=== PATIENT | female | born 1940 | race Caucasian/White ===

== ENCOUNTER 2018-09-21 08:57 | Emergency (ER) | payer MEDICARE, BC ==
[~2018-09-21] VITALS: Ht 154.9 cm; Wt 89.4 kg
[~2018-09-21 08:57] MED LIST: AMLODIPINE BESY10 MG PO; BENAZEPRIL HCL10 MG PO; CALCIUM500 MG PO; CENTRUM SILVER1 EAC3 PO; CLORAZEPATE D3.75 MG PO; LASIX40 MG PO; MACROBID 100 M100 MG PO; MONTELUKAST SOD10 MG PO; PANTOPRAZOLE SO40 MG PO; PLAVIX75 MG PO; PRAVASTATIN SOD10 MG PEG; PREDNISONE10 MG PO; SYMBICORT 16010.2 GM; SYMBICORT 16010.2 GM INH; VITAMIN D31000 UNIT PO
--- OUTSIDE RECORDS SUMMARY | 2018-09-21 09:01 | XMS REPORT | Clinical Summary ---
Author Author [facility] Address Unknown Phone Unavailable Care Team Providers Care Telephone Operator Receptionist Name Role Phone Unknownmeds, Provider PCP Unavailable Allergies Comments Active Allergy Reactions Severity Noted Date Glucosamine 10/15/2015 Iodine Nausea Only 10/15/2015 Iodine And Iodide 10/11/2015 Containing Products Shellfish Containing Diarrhea 10/11/2015 Products Tongue swells Sulfa (Sulfonamide Swelling 10/11/2015 Antibiotics) Tongue swelling, able to take hctz without difficulty Sulfamethoxazole-Trimetho Swelling 10/15/2015 prim Medications End Date Status Medication Sig Dispensed Refills Start Date Active amLODIPine (NORVASC) 10 Take 10 mg by 0 MG tablet mouth daily. Active aspirin 81 MG EC tablet Take 81 mg by 0 mouth daily. Active benazepril (LOTENSIN) 40 Take 40 mg by 0 MG tablet mouth daily. Active BUDESONIDE/FORMOTEROL Inhale by 0 FUMARATE (SYMBICORT INHL) mouth via inhaler 2 (two) times daily. Active fluticasone (FLONASE) 50 1 spray by 0 mcg/actuation nasal spray Nasal route as needed for Rhinitis. Active furosemide (LASIX) 40 MG Take 40 mg by 0 tablet mouth 3 (three) times a week. Active montelukast (SINGULAIR) Take 10 mg by 0 10 mg tablet mouth nightly. Active clopidogrel (PLAVIX) 75 Take 75 mg by 0 mg tablet mouth daily. Active zolpidem (AMBIEN) 5 MG Take 5 mg by 0 tablet mouth every night as needed for Insomnia. Active ranitidine (ZANTAC) 150 Take 150 mg 0 MG capsule by mouth daily. Active ibuprofen (ADVIL,MOTRIN) Take 200 mg 0 100 mg/5 mL suspension by mouth every 4 (four) hours as needed for Fever. Active clorazepate (TRANXENE) Take 3.75 mg 0 3.75 MG tablet by mouth 2 (two) times daily. Active pravastatin (PRAVACHOL) Take 10 mg by 0 10 MG tablet mouth daily. Active valACYclovir (VALTREX) Take 1,000 mg 0 1000 MG tablet by mouth 2 (two) times daily. Active predniSONE (DELTASONE) 1 Take 1 mg by 0 MG tablet mouth daily. Active Problems No known active problems Social History Date Tobacco Use Types Packs/Day Years Used Never Smoker Smokeless Tobacco: Never Used Alcohol Use Drinks/Week oz/Week Comments No Sex Assigned at Date Recorded Not on file Industry Job Start Date Occupation Not on file Not on file Not on file Travel End Travel History Travel Start No recent travel history available. Last Filed Vital Signs Not on file Plan of Treatment Not on file Results Not on fileafter 09/20/2017 Insurance Payer Benefit Subscriber ID Type Phone Address Plan / Group MEDICARE MEDICARE A xxxxxxxxxx Medicare B BLUE CROSS/BLUE [employer]IELD BCBS xxxxxxxxxxxx O [phone] [address] [place] [address] [place] Advance Directives Patient has advance care planning documents on file. For more information, osmel wilkins contact: [facility] [address] [place] [address]
[2018-09-21] MEDS ORDERED: HYDROCHLOROTHIA25 MG (09:27)
[2018-09-21] MEDS ORDERED: ULTRAM50 MG PO (09:27)
[2018-09-21] MEDS ORDERED: PLAQUENIL200 MG PO (09:27)
[2018-09-21] MEDS ORDERED: ASPIR 8181 MG (09:27)
[2018-09-21] MEDS ORDERED: ENZYME DIGEST1 EACH (09:27)
[2018-09-21] MEDS ORDERED: NITROFURANTOIN100 MG PO (09:27)
[2018-09-21] MEDS ORDERED: MIRTAZAPINE15 MG PO (09:27)
[2018-09-21] MEDS ORDERED: TETANUS/DIPHTHERIA TOX ADULT 0.5 ML SYR IM ONE (09:45)
--- NOTE | 2018-09-21 09:54 | Diagnostic Imaging Report ---
Exam: Left humerus radiographs-2 views History: Status post fall. Comparison: None. Findings: No evidence of acute fracture, malalignment, or soft tissue mildly. There are moderate degenerative changes in the left glenohumeral joint. Impression: No acute radiographic abnormality. Signed by: Dr. Kevin Marcus MD on 09/21/2018 9:51 AM
[2018-09-21 10:12] VITALS: BP 190/78
== END 2018-09-21 10:11 | disposition home or self-care (01) ==
LOC: FSED 08:57
DX: S41.112A Laceration without foreign body of left upper arm, initial encounter (principal); S40.022A Contusion of left upper arm, initial encounter; W01.190A Fall on same level from slipping, tripping and stumbling with subsequent striking against furniture, initial encounter; Y93.84 Activity, sleeping; Y92.003 Bedroom of unspecified non-institutional (private) residence as the place of occurrence of the external cause; I10 Essential (primary) hypertension
CPT/HCPCS: 90714; 99283

== ENCOUNTER 2019-03-31 15:34 | Emergency (ER) | payer MEDICARE, BC ==
[~2019-03-31] VITALS: Ht 149.9 cm; Wt 85.8 kg
[~2019-03-31 15:34] MED LIST changes: +ASPIR 8181 MG; +ENZYME DIGEST1 EACH; +HYDROCHLOROTHIA25 MG; +MIRTAZAPINE15 MG PO; +NITROFURANTOIN100 MG PO; +PLAQUENIL200 MG PO; +ULTRAM50 MG PO
--- OUTSIDE RECORDS SUMMARY | 2019-03-31 15:38 | XMS REPORT ---
Author Author [facility] Address Unknown Phone Unavailable Care Team Providers Care Senior Sustainability Consultant Name Role Phone aJi COOLEY Unavailable Unavailable Problems This patient has no known problems. Allergies, Adverse Reactions, Alerts This patient has no known allergies or adverse reactions. Medications This patient has no known medications. Results Test Description Test Time Test Comments Text Results Atomic Results Result Comments SCR MAMM BILATERAL DENICE CAD DIGITAL 2018-10-31 13:12:24 - SCR MAMM BILATERAL DENICE CAD DIGITALBILATERAL DIGITAL SCREENING MAMMOGRAM 3D/2D WITH CAD: 10/31/2018CLINICAL: Asymptomatic. Digital breast tomosynthesis was performed in addition to routine CC and MLO views. Current mammographic images were evaluated by either a [employer] M-Vu or a [employer] ImageChecker CAD (computer aided detection system). Comparison is made to exams dated 10/28/2017 mammogram, 10/27 mammogram, and 10/11/2015 mammogram - [facility]. There are scattered fibroglandular tissues in both breasts. No suspicious mass, architectural distortion, malignant type calcification, or lymph node abnormality detected. Breast architecture is stable compared to prior exams.IMPRESSION: NEGATIVEThere is no mammographic evidence of malignancy. Resume annual screening mammography in one year. Debbie Forrest M.D. dm/penrad:10/31/2018 13:12:24 Wellness Specialist: Amalia HAYES, [facility] sent: BIRADS 1-2 Normal Mammogram BI-RADS: 1 Negative HUMERUS 2 VIEW - [facility] 2018-09-21 09:49:[address] [address] Patient Name: EDDIE YOUNG MR #: [id number] : 1940 Age/Sex: 78/F Req #: [id number] [facility] Physician: Ordered by: TAMIE COOLEY MD Report #: [id number] Location: [facility] Room/Bed: Procedure: [id number] [facility]D/HUMERUS 2 VIEW LT - [facility] Exam Date: 09/21/18 Exam Time: 929 REPORT STATUS: Signed Exam: Left humerus radiographs-2 views History: Status post fall. Comparison: None. Findings: No evidence of acute fracture, malalignment, or soft tissue mildly. There are moderate degenerative changes in the left glenohumeral joint. Impression: No acute radiographic abnormality. Signed by: Dr. Demetrio Ramon MD on 09/21/2018 9:51 AM Dictated By: DEMETRIO RAMON MD 0 Transcribed By: BALDO on 09/21/18950 COPY TO: TAMIE COOLEY MD
[2019-03-31] MEDS ORDERED: ALBUTEROL SULF 0.083% NEB SOLN 3 ML NEB NEB STA (15:53)
[2019-03-31] MEDS ORDERED: IPRATROPIUM BROMIDE 0.02% 2.5 ML NEB NEB STA (15:53)
--- NOTE | 2019-03-31 16:30 | Diagnostic Imaging Report ---
EXAMINATION: CXR 2 VIEW - [facility] INDICATION: Cough COMPARISON: Report of chest radiograph of 12/24/2015 (images not available for comparison) FINDINGS: LINES/TUBES:None LUNGS:The lungs are well-inflated. No focal consolidation or pulmonary edema. PLEURA:No pleural effusion or pneumothorax. MEDIASTINUM:The cardiomediastinal silhouette appears normal in size and shape. Atherosclerotic calcifications of the thoracic aorta. BONES/SOFT TISSUES:No acute osseous injury. ABDOMEN:No free air under the diaphragm. Status post cholecystectomy. IMPRESSION: No focal pneumonia or pulmonary edema. Signed by: Carolynn Jarvis MD on 03/31/2019 4:27 PM
[2019-03-31] MEDS ORDERED: IPRATROPIUM BROMIDE 0.02% 2.5 ML NEB ONE (16:32)
[2019-03-31] MEDS ORDERED: ALBUTEROL SULF 0.083% NEB SOLN 3 ML NEB ONE (16:33)
[2019-03-31] MEDS ORDERED: CEFTRIAXONE SOD 1 GM VIAL IV ONE (17:00)
[2019-03-31] MEDS ORDERED: CEFTRIAXONE SOD 1 GM/NS 50 ML 50 ML IV ONE ×2 (17:00→17:03)
[2019-03-31 17:34] VITALS: BP 144/82
[2019-03-31] MEDS ORDERED: ATIVAN1 MG PO (18:02)
[2019-03-31] MEDS ORDERED: GLUCOSAMINE &1 EAC1 (18:02)
== END 2019-03-31 17:43 | disposition home or self-care (01) ==
LOC: FSED 15:34
DX: R06.00 Dyspnea, unspecified (principal); R05 Cough; J20.9 Acute bronchitis, unspecified; J45.30 Mild persistent asthma, uncomplicated; I10 Essential (primary) hypertension; J98.4 Other disorders of lung; K21.9 Gastro-esophageal reflux disease without esophagitis
CPT/HCPCS: 71046; 80053; 81003; 82553; 83880; 84484; 85025; 93005; 99284; J0696

== ENCOUNTER 2019-05-05 13:03 | Emergency (ER) | payer MEDICARE, BC ==
[~2019-05-05] VITALS: Ht 154.9 cm; Wt 87.5 kg
[~2019-05-05 13:03] MED LIST changes: +ATIVAN1 MG PO; +GLUCOSAMINE &1 EAC1
[2019-05-05] MEDS ORDERED: TRAMADOL HCL 50 MG TAB ONE (13:42)
[2019-05-05] MEDS ORDERED: TRAMADOL HCL 50 MG TAB PO ONE (13:45)
--- NOTE | 2019-05-05 14:43 | Diagnostic Imaging Report ---
EXAMINATION: HIP 2 VW WITH PELVIS RT - [facility], L SPINE 2-3 VEWS - [facility], SACRUM COCCYX 2+ VEIWS - [facility] INDICATION: Fall COMPARISON: None FINDINGS: Right hip and pelvis: No acute fracture or dislocation. Postoperative findings of prior ORIF of right proximal femur. Alignment appears anatomic. Mild degenerative changes of both hip joints. Moderate degenerative changes of the partially visualized spine. Atherosclerotic arterial calcifications. Phleboliths in the pelvis. Nonobstructive bowel gas pattern. No free air. Lumbar Spine: No compression fracture. Vertebral body heights are maintained. Grade 1 anterolisthesis of L4-5 and L5-S1. Moderate degenerative changes of the visualized spine. Sacrum: No acute fracture or dislocation. IMPRESSION: No acute osseous injury. Grade 1 anterolisthesis at L4-5 and L5-S1. Moderate multilevel degenerative changes of the visualized spine. Signed by: Carolynn Jarvis MD on 05/05/2019 2:39 PM
[2019-05-05 15:27] VITALS: BP 182/91
== END 2019-05-05 15:25 | disposition home or self-care (01) ==
LOC: FSED 13:03
DX: S30.0XXA Contusion of lower back and pelvis, initial encounter (principal); G89.11 Acute pain due to trauma; W18.30XA Fall on same level, unspecified, initial encounter; Y92.008 Other place in unspecified non-institutional (private) residence as the place of occurrence of the external cause; I10 Essential (primary) hypertension; I25.10 Atherosclerotic heart disease of native coronary artery without angina pectoris; F41.9 Anxiety disorder, unspecified; Z86.73 Personal history of transient ischemic attack (TIA), and cerebral infarction without residual deficits; Z79.02 Long term (current) use of antithrombotics/antiplatelets; Z79.82 Long term (current) use of aspirin
CPT/HCPCS: 72100; 72220; 99283